=== PATIENT | female | born 1995 | race Native Hawaiian/Other Pacific Islander ===

== ENCOUNTER 2018-07-30 12:25 | Outpatient (CLI) | payer OTHER | END 2018-07-30 12:26 | disposition home or self-care (01) | LOC: C.LAB 12:25 | DX: Z34.92 Encounter for supervision of normal pregnancy, unspecified, second trimester (principal) ==

== ENCOUNTER 2018-08-28 11:36 | Outpatient (CLI) | payer OTHER | END 2018-08-28 11:37 | disposition home or self-care (01) | LOC: C.LAB 11:36 | DX: O35.8XX0 Maternal care for other (suspected) fetal abnormality and damage, not applicable or unspecified (principal) ==

== ENCOUNTER 2018-09-21 09:57 | Outpatient (CLI) | payer OTHER | END 2018-09-21 09:58 | disposition home or self-care (01) | LOC: C.LAB 09:57 | DX: Z34.82 Encounter for supervision of other normal pregnancy, second trimester (principal) ==

== ENCOUNTER 2018-10-23 13:56 | Outpatient (CLI) | payer OTHER | END 2018-10-23 13:57 | disposition home or self-care (01) | LOC: C.LAB 13:56 | DX: L29.9 Pruritus, unspecified (principal) ==